=== PATIENT | male | born 1985 ===

== ENCOUNTER 2018-05-17 11:15 | Emergency (ER) | payer OTHER ==
[2018-05-17 11:16] VITALS: BMI 32.9
[2018-05-17] MEDS ORDERED: Sodium Chloride 0.9% 1,000 ML IV STA (12:27)
--- NOTE | 2018-05-17 12:28 | ED PDOC ---
HPI: Abdomen Time Seen by Provider: 05/17/18 12:20 Chief Complaint (Nursing): Abdominal Pain Chief Complaint (Provider): Abdominal Pain History Per: Patient History/Exam Limitations: no limitations Onset/Duration Of Symptoms: Days Current Symptoms Are (Timing): Still Present Quality Of Discomfort: "Pain" Associated Symptoms: Diarrhea Additional Complaint(s): 32 y/o male with a PMHx of pancreatitis presents to the ED complaining of intermittent abdominal pain. Patient reports he was seen and evaluated here in November for the same symptoms. Patient is concerned of reoccurrence. Denies alcohol use, fever, chills and abdominal surgeries in the past. PMD: None Provided Past Medical History Reviewed: Historical Data, Nursing Documentation, Vital Signs - Medical History PMH: Pancreatitis Denies: HIV, Chronic Kidney Disease - Surgical History Surgical History: No Surg Hx - Family History Family History: States: Unknown Family Hx - Social History Alcohol: None - Home Medications Home Medications: Ambulatory Orders Medication Instructions Recorded Gemfibrozil [Lopid] 600 mg PO BID #60 tab 07/19/17 Multimineral/Multivitamin 1 tab PO DAILY tab 07/19/17 [Therapeutic-M Tab] Gxypo-2-Scmh Ethyl Esters 1 GM 1 gm PO BID #60 sgl 07/19/17 [Lovaza] Thiamine [Vitamin B1 Tab] 100 mg PO DAILY #30 tab 07/19/17 traMADol [Ultram] 50 mg PO TID PRN #15 tab 07/19/17 Famotidine [Pepcid] 20 mg PO BID #10 tab 05/17/18 - Allergies Allergies/Adverse Reactions: Allergies Allergy/AdvReac Type Severity Reaction Status Date / Time No Known Allergies Allergy Verified 07/17/17 02:51 Review of Systems ROS Statement: Except As Marked, All Systems Reviewed And Found Negative Gastrointestinal: Positive for: Abdominal Pain, Diarrhea Physical Exam - Reviewed Nursing Documentation Reviewed: Yes Vital Signs Reviewed: Yes - Physical Exam Appears: Positive for: Non-toxic, No Acute Distress Head Exam: Positive for: ATRAUMATIC Skin: Positive for: Normal Color, Warm, Dry Eye Exam: Positive for: Normal appearance Neck: Positive for: Normal, Painless ROM Cardiovascular/Chest: Negative for: Bradycardia, Tachycardia Gastrointestinal/Abdominal: Positive for: Normal Exam, Distended (mildly ). Negative for: Tenderness Extremity: Positive for: Normal ROM. Negative for: Deformity Neurologic/Psych: Positive for: Alert, Oriented. Negative for: Motor/Sensory Deficits - Laboratory Results Result Diagrams: 05/17/18 12:00 05/17/18 12:00 Medical Decision Making Medical Decision Making: Time: 1227 Plan: -- CMP -- Lipase -- CBC with differentials -- Sodium Chloride IV 500 mls/hr -- Pepcid 20 mg IVP -- Zofran Inj 4 mg IVP -- Urinalysis Scribe Attestation: Documented by Patricia Gregory, acting as a scribe for Rubi Gilliam PA-C. Provider Scribe Attestation: All medical record entries made by the Scribe were at my direction and personally dictated by me. I have reviewed the chart and agree that the record accurately reflects my personal performance of the history, physical exam, medical decision making, and the department course for this patient. I have also personally directed, reviewed, and agree with the discharge instructions and disposition. Disposition - Clinical Impression Clinical Impression: Gastritis - Patient ED Disposition Is Patient to be Admitted: No - Disposition Referrals: [facility] [Outside] Disposition: Routine/Home Disposition Time: 13:28 Condition: FAIR Prescriptions: Famotidine [Pepcid] 20 mg PO BID #10 tab Instructions: Gastritis (DC), Ulcer and Gastritis Diet Forms: [facility] ED School/Work Excuse Print Language: [id number]
[2018-05-17 12:44] LABS: BASO # 0.1 K/uL (0.0-0.2); BASO % 0.6 % (0.0-2.0); EOS # 0.1 K/uL (0.0-0.7); EOS % 0.7 % (0.0-4.0); HEMOGLOBIN 15.6 g/dL (12.0-18.0); LYMPH # 1.3 K/uL (1.0-4.3); MEAN CELL VOLUME 89.5 fl (80.0-94.0); MEAN CORPUSCULAR HEMOGLOBIN 29.9 pg (27.0-31.0); MEAN CORPUSCULAR HGB CONC 33.4 g/dL (33.0-37.0); MEAN PLATELET VOLUME 9.1 fl (7.2-11.7); MONO # 0.8 K/uL (0.0-0.8); MONO % 8.4 % (0.0-10.0); NEUT # 6.9 K/uL (1.8-7.0); NEUT % 76.3 % (50.0-75.0); NRBC % 0.1 % (0.0-0.0); RBC 5.21 Mil/uL (4.40-5.90); RED CELL DISTRIBUTION WIDTH 13.3 % (11.5-14.5); SQUAMOUS EPITHIAL < 1 /hpf (0-5); URINE AMORPHOUS SEDIMENT RARE /ul (<OCC); URINE BILIRUBIN NEGATIVE (NEGATIVE); URINE BLOOD NEGATIVE (NEGATIVE); URINE CLARITY SLIGHTY-CLOUDY (Clear); URINE COLOR YELLOW (YELLOW); URINE GLUCOSE (UA) NEG (Normal); URINE LEUKOCYTE ESTERASE NEG Leu/uL (Negative); URINE PROTEIN NEGATIVE (NEGATIVE); URINE UROBILINOGEN 0.2-1.0 mg/dL (0.2-1.0)
[2018-05-17 13:00] LABS: ALB/GLOB RATIO 1.4 (1.0-2.1); ALBUMIN 4.6 g/dL (3.5-5.0); ALT/SGPT 38 U/L (21-72); AST/SGOT 37 U/L (17-59); BLOOD UREA NITROGEN 13 mg/dl (9-20); CALCIUM 9.3 mg/dL (8.4-10.2); GFR AFRICAN-AMERICAN > 60; GFR NON-AFRICAN AMERICAN > 60; LIPASE 69 U/L (23-300)
[2018-05-17 13:48] VITALS: BP 118/75; PULSE 71; RESP 18; TEMP 98.4; O2SAT 100
== END 2018-05-17 14:13 | disposition home or self-care (01) ==
LOC: H.ER 11:15
DX: K29.70 Gastritis, unspecified, without bleeding (principal); K85.90 Acute pancreatitis without necrosis or infection, unspecified
CPT/HCPCS: 80053; 81003; 83690; 85025; 96374; 96375; 99283; J2405; J7030